=== PATIENT | female | born 1975 | race Caucasian/White ===

== ENCOUNTER 2022-04-07 13:44 | Emergency (ER) | payer MEDICAID ==
[~2022-04-07 13:44] MED LIST: PRETAB GT
--- NOTE | 2022-04-07 14:51 | NUR ---
CALLEDX1. NO SHOW. Addendum: 04/07/22 at 1640 by [email or web address] PATIENT LEFT WITHOUT BEING SEEN BY DR. BAEZ. NO FURTHER CARE PROVIDED FOR PATIENT.
--- NOTE | 2022-04-07 15:15 | NUR ---
CALLEDX2. NO SHOW.
--- NOTE | 2022-04-07 15:30 | NUR ---
CALLEDX3. NO SHOW.
--- NOTE | 2022-04-07 15:45 | NUR ---
CALLED [id number]. NO ANWSERING
== END 2022-04-07 14:08 | disposition left against medical advice (07) ==
LOC: MED 13:44
DX: M54.50 Low back pain, unspecified (principal); R51.9 Headache, unspecified; Z53.21 Procedure and treatment not carried out due to patient leaving prior to being seen by health care provider

== ENCOUNTER 2024-03-18 22:08 | Emergency (ER) | payer MEDICAID ==
[~2024-03-18] VITALS: Ht 170.2 cm; Wt 120.4 kg
[2024-03-18 22:57] VITALS: BP 122/65; PULSE 85; RESP 22; TEMP 98.1; O2SAT 98
[2024-03-18 23:41] LABS: FLU A ANTIGEN negative (NEGATIVE); FLU B ANTIGEN negative (NEGATIVE)
[2024-03-19] MEDS ORDERED: PSEU120T22 PO (00:14)
[2024-03-19] MEDS ORDERED: PRED20TA5 PO (00:14)
[2024-03-19] MEDS ORDERED: IBUP-2213 PO (00:14)
[2024-03-19 00:36] VITALS: BP 122/65; PULSE 85; RESP 22; TEMP 98.1; O2SAT 98
== END 2024-03-19 00:36 | disposition home or self-care (01) ==
LOC: MED 22:08
DX: J06.9 Acute upper respiratory infection, unspecified (principal); Z20.822 Contact with and (suspected) exposure to COVID-19; R03.0 Elevated blood-pressure reading, without diagnosis of hypertension; F17.210 Nicotine dependence, cigarettes, uncomplicated; Z79.899 Other long term (current) drug therapy
CPT/HCPCS: 99283